=== PATIENT | female | born 1965 | race Caucasian/White ===

== ENCOUNTER 2016-08-07 22:50 | Inpatient (IN) ==
[2016-08-07] MEDS ORDERED: *HR* HYDROmorphone (PF) 1 MG/ML SYRINGE IVP ONE (23:37)
[2016-08-07] MEDS ORDERED: Ondansetron 4 MG/2 ML VIAL IVP ONE (23:37)
[2016-08-07] MEDS ORDERED: 0.9 % Sodium Chloride 1,000 ML IV ONE (23:37)
[2016-08-07] MEDS ORDERED: Ondansetron ODT 4 MG TAB.RAPDIS SL ONE (23:37)
[2016-08-08 00:14] LABS: Basophils # 0.1 K/mcL (0.0-0.2); Basophils % 0.5 %; Eosinophils # 0.3 K/mcL (0.0-0.6); Hematocrit 42.7 % (35.3-44.9); Hemoglobin 14.4 g/dL (11.5-15.4); Immature Granulocytes % 0.4 % (0-4); Lymphocytes # 1.9 K/mcL (0.6-4.6); Lymphocytes % 12.5 %; Mean Corpuscular HGB Conc 33.7 g/dL (31.6-35.5); Mean Corpuscular Hemoglobin 32.5 pg (28.0-33.3); Mean Corpuscular Volume 96.4 fL (83.0-100.0); Mean Platelet Volume 9.3 fL (9.4-12.4); Monocytes % 6.3 %; Neutrophils # 11.9 K/mcL (1.6-8.9); Platelet Count 315 K/mcL (140-400); Red Blood Count 4.43 M/mcL (3.82-4.97); Red Cell Distribution Width 12.3 % (11.5-14.5); Segmented Neutrophils % 78.3 %
[2016-08-08] MEDS ORDERED: *HR* HYDROmorphone (PF) 1 MG/ML SYRINGE IVP ONE (00:25)
[2016-08-08 00:28] LABS: Alanine Aminotransferase 59 Units/L (0-55); Albumin/Globulin Ratio 1.1 (1.1-2.2); Alkaline Phosphatase 81 Units/L (38-126); Aspartate Amino Transferase 34 Units/L (5-34); BUN/Creatinine Ratio 26 (6-26); Bilirubin,Total 0.5 mg/dL (0.2-1.2); Blood Urea Nitrogen 20 mg/dL (7-20); Calcium 9.7 mg/dL (8.6-10.8); Carbon Dioxide 24 mEq/L (19-29); Chloride 104 mEq/L (98-109); Globulin 3.6 g/dL (2.4-3.5); Glucose 113 mg/dL (70-99); Lipase 25 Units/L (8-78); Osmolality,Calculated 289 (280-300); Potassium 4.2 mEq/L (3.5-4.5); Sodium 138 mEq/L (136-145); Total Protein 7.6 g/dL (6.0-8.3); eGFR For African Americans > 60 (> 60); eGFR For Non-African Americans > 60 (> 60)
--- NOTE | 2016-08-08 00:45 | Emergency Department Note ---
Addendum entered and electronically signed by Aashish Varma DO 08/08/16 04: 48: EKG shows sinus rhythm with a ventricular rate of 83 bpm. KS interval 167. QRS 82. QTC 398. Patient has no significant ST elevation or depression. Mild T-wave changes throughout the precordial leads when compared to 07/23/16. Unknown significance. Original Note: Disposition Clinical Impression: Kidney stone, Pyelonephritis Hydronephrosis Qualifiers: Hydronephrosis type: unspecified Qualified Code(s): N13.30 - Unspecified hydronephrosis Disposition: Admitted As Inpatient Condition: Good General Adult HPI - General Chief complaint: ED Abdominal Pain Stated complaint: flank/abdominal pain/ N/V Time Seen by Provider: 08/07/16 23:21 Source: patient Limitations: no limitations Nursing Notes Reviewed: Yes Vital Signs Reviewed: Yes - History of Present Illness HPI Narrative: Patient here for evaluation of left flank pain and abdominal pain. Patient states symptoms started prior to arrival. Patient has had kidney stones in the past they have never radiated around to the front. Patient is nauseous and feels that she needs to vomit but nothing is coming up. No fevers or chills or abdominal tenderness or dysuria. CVA tenderness present. Patient states only current medication that she takes on a daily basis as ibuprofen. She was question about her hepatitis and previous CO as well as PE. Patient denies anticoagulation or daily aspirin use or other. Pain Scale: 9 - Related Data Home Medications Medication Instructions Recorded Confirmed Amitiza 06/24/15 Cogentin 06/24/15 Diazepam 06/24/15 Ducolace 06/24/15 Fiber 06/24/15 HydrOXYzine 06/24/15 Lunesta 06/24/15 Proair Respiclick 06/24/15 Seroquel 06/24/15 Spiriva 06/24/15 Previous Rx's Medication Instructions Recorded Cephalexin [Keflex] 500 mg PO BID #20 capsule 08/21/15 Ondansetron ODT [Zofran ODT] 4 mg SL Q8HR #10 tab.rapdis 08/21/15 Polyethylene Glycol 3350 [MiraLAX] 17 gm PO DAILY #10 powd.pack 08/21/15 Cephalexin [Keflex] 500 mg PO QID #40 capsule 08/31/15 Mupirocin [Bactroban Oint] 1 appl TP BID #30 g 08/31/15 Ondansetron ODT [Zofran ODT] 4 mg SL Q6HR #14 tab.rapdis 11/03/15 Oxycodone HCl/Acetaminophen 1 each PO QID PRN #6 tablet 12/20/15 [Percocet 5-325 mg Tablet] Hydrocodone/Acetaminophen [[place] 1 - 2 each PO Q6H PRN #15 tablet 01/04/16 5-325 Tablet] MethylPREDNISolone [Medrol] 1 each PO DAILY #1 packet 01/04/16 Hydrocodone/Acetaminophen [[place] 1 - 2 tab PO Q6H PRN #20 tab 01/27/16 5-325 Tablet] Cyclobenzaprine [Flexeril] 10 mg PO TID 15 Days 02/05/16 Ibuprofen [Motrin] 600 mg PO Q6HR PRN #40 tab MDD 3200 02/05/16 Hydrocodone/Acetaminophen [[place] 1 tab PO Q6H PRN #6 tab 03/20/16 5-325 Tablet] Nitrofurantoin (BID) [Macrobid] 100 mg PO BID 5 Days 03/20/16 Phenazopyridine HCl [Pyridium] 200 mg PO TID #6 tab 03/20/16 Hydrocodone/Acetaminophen [[place] 1 tab PO Q6H PRN #6 tab 05/15/16 5-325 Tablet] MethylPREDNISolone [Medrol] 4 mg PO TAPER #21 tablet 05/15/16 Cyclobenzaprine [Flexeril] 10 mg PO TID #30 tablet 07/23/16 OxyCODONE/APAP 5/325 [Percocet 1 each PO Q6HR PRN #15 tablet 07/23/16 5/325 MG] Allergies Allergy/AdvReac Type Severity Reaction Status Date / Time divalproex sodium Allergy Anaphylaxis Verified 08/07/16 22:53 [From Depakote] ketorolac [From Toradol] Allergy Rash Verified 08/07/16 22:53 sulfamethoxazole Allergy Anaphylaxis Verified 08/07/16 22:53 [From Bactrim] trimethoprim [From Bactrim] Allergy Anaphylaxis Verified 08/07/16 22:53 phenazopyridine AdvReac Vomiting Verified 08/07/16 22:53 [From Pyridium] All systems ED: reviewed and negative except as stated. Constitutional: Denies: fever, chills, weakness Cardiovascular: Denies: chest pain Respiratory: Denies: cough, dyspnea Gastrointestinal: Reports: abdominal pain, nausea. Denies: diarrhea, constipation Genitourinary: Denies: urgency, dysuria, frequency Musculoskeletal: Denies: back pain Integumentary: Denies: rash Neurological: Denies: headache, weakness Endocrine: Denies: fatigue Past Medical History - Past Medical History Medical history: Reports: COPD, hepatitis, kidney stones, liver disease, myocardial infarction, pulmonary embolus, other Surgical history: Reports: appendectomy, cholecystectomy, hysterectomy, other Psychiatric history: Reports: bipolar, panic disorder HYDROGEN CELL TENDER history: Reports: no HYDROGEN CELL TENDER history, other - Social History Smoking Status: Current every day smoker Smokeless Tobacco Status: No Alcohol use: Reports: none Drug use: Reports: none Physical Exam - General Limitations: no limitations General appearance: alert - Head Head exam: atraumatic, normocephalic - Eye Eye exam: Present: normal appearance - ENT ENT exam: normal exam, normal oropharynx - Neck Neck exam: Present: normal inspection - Chest Chest inspection: Present: normal inspection, symmetric chest wall rise Course - Reevaluation(s) Reevaluation #1: Patient received 2 mg of Dilaudid with mild pain relief. Toradol administered with significant pain relief. - Consultations Consultation #1: Discussed with Dr. Correia. Pt accepted to the urologic service. Vital Signs Temperature 97.9 F 08/07/16 22:53 Pulse Rate 112 08/07/16 22:53 Respiratory Rate 20 08/07/16 22:53 Blood Pressure 143/72 08/07/16 22:53 O2 Sat by Pulse Oximetry 97 08/07/16 22:53 Temperature 102.1 F H 08/08/16 05:15 Pulse Rate 105 08/08/16 05:15 Respiratory Rate 21 08/08/16 05:15 Blood Pressure 104/68 08/08/16 05:15 O2 Sat by Pulse Oximetry 92 L 08/08/16 05:15 Oxygen Delivery Oxygen Delivery Room Air Medical Decision Making - Lab Data Result diagrams: 08/08/16 00:07 08/08/16 00:07 Lab Results 08/08/16 08/08/16 08/08/16 Range/Units 00:07 00:07 02:35 WBC 15.2 H (4.3-11.1) K/mcL RBC 4.43 (3.82-4.97) M/mcL Hgb 14.4 (11.5-15.4) g/dL Hct 42.7 (35.3-44.9) % MCV 96.4 (83.0-100.0) fL MCH 32.5 (28.0-33.3) pg MCHC 33.7 (31.6-35.5) g/dL RDW 12.3 (11.5-14.5) % Plt Count 315 (140-400) K/mcL MPV 9.3 L (9.4-12.4) fL Immature Gran % 0.4 (0-4) % Seg Neutrophils % 78.3 % Lymphocytes % 12.5 % Monocytes % 6.3 % Eosinophils % 2.0 % Basophils % 0.5 % Neutrophils # 11.9 H (1.6-8.9) K/mcL Lymphocytes # 1.9 (0.6-4.6) K/mcL Monocytes # 1.0 (0.0-1.3) K/mcL Eosinophils # 0.3 (0.0-0.6) K/mcL Basophils # 0.1 (0.0-0.2) K/mcL Sodium 138 (136-145) mEq/L Potassium 4.2 (3.5-4.5) mEq/L Chloride 104 (98-109) mEq/L Carbon Dioxide 24 (19-29) mEq/L BUN 20 (7-20) mg/dL Creatinine 0.78 (0.57-1.11) mg/dL Est GFR ( Amer) > 60 (> 60) Est GFR (Non-Af Amer) > 60 (> 60) BUN/Creatinine Ratio 26 (6-26) Glucose 113 H (70-99) mg/dL Calculated Osmolality 289 (280-300) Calcium 9.7 (8.6-10.8) mg/dL Total Bilirubin 0.5 (0.2-1.2) mg/dL AST 34 (5-34) Units/L ALT 59 H (0-55) Units/L Alkaline Phosphatase 81 (38-126) Units/L Serum Total Protein 7.6 (6.0-8.3) g/dL Albumin 4.0 (3.5-5.0) g/dL Globulin 3.6 H (2.4-3.5) g/dL Albumin/Globulin Ratio 1.1 (1.1-2.2) Lipase 25 (8-78) Units/L Urine Color Yellow (Yellow) Urine Clarity Cloudy A (Clear) Urine pH 6.0 (5.0-8.0) pH Units Ur Specific [place] 1.013 (1.010-1.025) Urine Protein Negative (Neg-Trace) mg/dL Urine Glucose (UA) Normal (Normal) mg/dL Urine Ketones Negative (Negative) mg/dL Urine Blood Trace H (Negative) Urine Nitrite Positive A (Negative) Urine Bilirubin Negative (Negative) Urine Urobilinogen Normal (Normal) mg/dL Ur Leukocyte Esterase Large H (Negative) Urine Microscopic RBC 0-3 (0-3) per hpf Urine Microscopic WBC 50-100 H (0-3) per hpf Ur Squamous Epith Cells Few (None-Few) per lpf Urine Bacteria Many H (None-Few) per hpf Hyaline Casts None Seen (None-Few) per lpf Attestation Statement - Attestation Attestation: For this encounter, I have reviewed the resident, ENGRAVER FLATWARE, or PA documentation, treatment plan, and medical decision making; and I have had face to face time with this patient. 51-year-old female presents with left flank pain. Patient states symptoms started a few hours prior to arrival. Patient has a history of ureterolithiasis in the past which has required surgery. Patient denies fever, chills, dysuria, diarrhea. Patient has tenderness palpation and percussion of the left CVA. CT of the abdomen shows hydronephrosis and likely ureteral stone. Patient's urinalysis shows urinary tract infection. Patient will be given antibiotics in the emergency department and admitted to the urologist for further care and evaluation. Patient pain is well-controlled after 2 mg of Dilaudid and then Toradol after a normal creatinine. The patient is comfortable with the plan for admission to the hospital.
[2016-08-08] MEDS ORDERED: *HR* Promethazine 25 MG/ML VIAL IVP ONE (01:16)
[2016-08-08] MEDS ORDERED: Ketorolac 15 MG/ML VIAL IVP ONE (01:16)
[2016-08-08 02:53] LABS: Bilirubin,Urine Negative (Negative); Blood,Urine Trace (Negative); Clarity,Urine Cloudy (Clear); Color,Urine Yellow (Yellow); Glucose,Urine (UA) Normal (Normal); Ketones,Urine Negative (Negative); Leukocyte Esterase,Urine Large (Negative); Nitrite,Urine Positive (Negative); Protein,Urine Negative (Neg-Trace); Specific Gravity,Urine 1.013 (1.010-1.025); Urobilinogen,Urine Normal (Normal)
[2016-08-08 02:56] LABS: Bacteria,Urine Many per hpf (None-Few); Hyaline Casts,Urine None Seen per lpf (None-Few); RBC,Urine 0-3 per hpf (0-3); Squamous Epithelial Cell,Urine Few per lpf (None-Few); WBC,Urine 50-100 per hpf (0-3)
[2016-08-08] MEDS ORDERED: *HR* Morphine 2 MG/ML SYRINGE IVP ONE (05:45)
[2016-08-08] MEDS: Acetaminophen 325 MG TABLET PO ONE ×2 (06:22→06:34)
[2016-08-08] MEDS ORDERED: Acetaminophen 325 MG TABLET PO PRN (06:31)
[2016-08-08] MEDS ORDERED: *HR* Promethazine 25 MG/ML VIAL IVP PRN (06:31)
[2016-08-08] MEDS ORDERED: Ibuprofen 400 MG TABLET PO PRN (06:31)
[2016-08-08] MEDS ORDERED: Naloxone 0.4 MG/ML INJ IVP PRN (06:31)
[2016-08-08] MEDS ORDERED: Ondansetron 4 MG/2 ML VIAL IVP PRN (06:31)
--- NOTE | 2016-08-08 06:49 | Urology History & Physical ---
Date of Encounter: 08/08/16 Time of Encounter: 06:48 Assessment and Plan (1) Ureteral stone with hydronephrosis Current Visit: Yes Status: Acute I reviewed the CT scan images. I suspect that this is a 3-4 mm stone in the distal ureter but it is somewhat difficult to confirm as there is no significant hydroureter. Secondary to her symptoms I plan to proceed with a ureteroscopic stone extraction and stent placement. Patient understands that I may only place a stent if reaching the area of the stone requires significant manipulation or if there is return of purulence. We discussed the increased risk of worsening infection with a UTI or pyelonephritis. 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 Although there was mild dilation of the left renal pelvis, CT scan last year the hydronephrosis has increased greatly on this recent scan. The retrograde pyelogram will hopefully better identify the source of the hydronephrosis. She understands that she will require a longer term stent because of this finding and that it may require further workup in the near future. (2) Fever Current Visit: Yes Status: Acute Ibuprofen as she reports an allergy to Tylenol Qualifiers: Fever type: due to other condition Qualified Code(s): R50.81 - Fever presenting with conditions classified elsewhere (3) Pyelonephritis Current Visit: Yes Status: Acute We will follow urine cultures. Start Rocephin. History of Present Illness Chief complaint: left flank pain HPI: Ms. Crook is a 51 year old female hx of urolithiasis. sudden onset of left flank pain. ct scan with a 3-4 mm left distal ureteral stone. also with possible UPJO. no known hx of UPJO. pt describes severe left flank pain. malaise but no fever. +N/V Past Med Surg Social Fam HX - Past Medical History Medical history: COPD, hepatitis, kidney stones, liver disease, myocardial infarction, pulmonary embolus, other Psychiatric history: bipolar, panic disorder - Past Surgical History Surgical History: appendectomy, cholecystectomy, hysterectomy, other - Social History Smoking Status: Current every day smoker Smokeless Tobacco Status: No Alcohol use: none Drug use: none - Family History Mother Cause of : cancer Medications and Allergies Amitiza 06/24/15 [History] Cogentin 06/24/15 [History] Diazepam 06/24/15 [History] Ducolace 06/24/15 [History] Fiber 06/24/15 [History] HydrOXYzine 06/24/15 [History] Lunesta 06/24/15 [History] Proair Respiclick 06/24/15 [History] Seroquel 06/24/15 [History] Spiriva 06/24/15 [History] Cephalexin [Keflex] 500 mg PO BID #20 capsule 08/21/15 [Rx] Ondansetron ODT [Zofran ODT] 4 mg SL Q8HR #10 tab.rapdis 08/21/15 [Rx] Polyethylene Glycol 3350 [MiraLAX] 17 gm PO DAILY #10 powd.pack 08/21/15 [Rx] Cephalexin [Keflex] 500 mg PO QID #40 capsule 08/31/15 [Rx] Mupirocin [Bactroban Oint] 1 appl TP BID #30 g 08/31/15 [Rx] Ondansetron ODT [Zofran ODT] 4 mg SL Q6HR #14 tab.rapdis 11/03/15 [Rx] Oxycodone HCl/Acetaminophen [Percocet 5-325 mg Tablet] 1 each PO QID PRN #6 tablet 12/20/15 [Rx] Hydrocodone/Acetaminophen [[place] 5-325 Tablet] 1 - 2 each PO Q6H PRN #15 tablet 01/04/16 [Rx] MethylPREDNISolone [Medrol] 1 each PO DAILY #1 packet 01/04/16 [Rx] Hydrocodone/Acetaminophen [[place] 5-325 Tablet] 1 - 2 tab PO Q6H PRN #20 tab 05/03 [Rx] Cyclobenzaprine [Flexeril] 10 mg PO TID 15 Days 02/05/16 [Rx] Ibuprofen [Motrin] 600 mg PO Q6HR PRN #40 tab MDD 3200 02/05/16 [Rx] Hydrocodone/Acetaminophen [[place] 5-325 Tablet] 1 tab PO Q6H PRN #6 tab 03/20/16 [Rx] Nitrofurantoin (BID) [Macrobid] 100 mg PO BID 5 Days 03/20/16 [Rx] Phenazopyridine HCl [Pyridium] 200 mg PO TID #6 tab 03/20/16 [Rx] Hydrocodone/Acetaminophen [[place] 5-325 Tablet] 1 tab PO Q6H PRN #6 tab 05/15/16 [Rx] MethylPREDNISolone [Medrol] 4 mg PO TAPER #21 tablet 05/15/16 [Rx] Cyclobenzaprine [Flexeril] 10 mg PO TID #30 tablet 07/23/16 [Rx] OxyCODONE/APAP 5/325 [Percocet 5/325 MG] 1 each PO Q6HR PRN #15 tablet 07/23/16 [Rx] Allergies divalproex sodium [From Depakote] Allergy (Verified 08/07/16 22:53) Anaphylaxis ketorolac [From Toradol] Allergy (Verified 08/07/16 22:53) Rash sulfamethoxazole [From Bactrim] Allergy (Verified 08/07/16 22:53) Anaphylaxis trimethoprim [From Bactrim] Allergy (Verified 08/07/16 22:53) Anaphylaxis phenazopyridine [From Pyridium] Adverse Reaction (Verified 08/07/16 22:53) Vomiting Review of Systems - Constitutional malaise, no fever(s) - EENT Nose, mouth and throat: as per HPI, no dizziness - Cardiovascular no chest pain - Gastrointestinal abdominal pain, nausea, vomiting - Genitourinary Genitourinary: flank pain, no dysuria - Musculoskeletal back pain - Integumentary no erythema - Neurological no confusion - Psychiatric no anxiety - Hematologic/Lymphatic no easy bleeding - Allergic/Immunologic no throat swelling Exam Initial Vital Signs Temp Pulse Resp BP Pulse Ox 97.9 F 112 20 143/72 97 08/07/16 22:53 08/07/16 22:53 08/07/16 22:53 08/07/16 22:53 08/07/16 22:53 - General physical appearance Present: well developed, well nourished, moderate pain - Eyes Present: PERRL - ENT Present: normal nares - Neck Present: no masses - Respiratory Present: normal respiratory effort - Cardiovascular Cardiovascular exam IM: tachycardia - Abdomen Abdomen: Present: soft - Integumentary Present: no rash - Neurologic Present: normal coordination. Absent: disoriented, confused - Musculoskeletal Present: normal gait Urology Results - Labs 08/08/16 00:07 08/08/16 00:07 Abnormal lab results WBC 15.2 K/mcL (4.3-11.1) H 08/08/16 00:07 MPV 9.3 fL (9.4-12.4) L 08/08/16 00:07 Neutrophils # 11.9 K/mcL (1.6-8.9) H 08/08/16 00:07 Glucose 113 mg/dL (70-99) H 08/08/16 00:07 ALT 59 Units/L (0-55) H 08/08/16 00:07 Globulin 3.6 g/dL (2.4-3.5) H 08/08/16 00:07 Urine Clarity Cloudy (Clear) A 08/08/16 02:35 Urine Blood Trace (Negative) H 08/08/16 02:35 Urine Nitrite Positive (Negative) A 08/08/16 02:35 Ur Leukocyte Esterase Large (Negative) H 08/08/16 02:35 Urine Microscopic WBC 50-100 per hpf (0-3) H 08/08/16 02:35 Urine Bacteria Many per hpf (None-Few) H 08/08/16 02:35 All other labs normal.
[2016-08-08] MEDS: 0.9 % Sodium Chloride 1,000 ML IVC SCH ×2 (07:50→16:15)
[2016-08-08] MEDS: *HR* Morphine 2 MG/ML SYRINGE IVP PRN ×4 (08:43→16:14)
--- NOTE | 2016-08-08 17:27 | Electrocardiograph Report ---
[place] [id number] Test Date: 2016-08-08 Pat Name: Marielena Crook Department: 105 Room: 2A Gender: F Supervisor Component Assembler: : 1965 Requested By: Aashish Varma Order Number: [id number] Reading MD: Selina Torres Measurements Intervals [place] Rate: 83 P: 48 TN: 167 QRS: 41 QRSD: 82 T: 50 QT: 358 QTc: 398 Interpretive Statements SINUS RHYTHM POSSIBLE LEFT ATRIAL ENLARGEMENT [-0.1mV P WAVE IN V1/V2] SEPTAL MYOCARDIAL INFARCTION [40+ ms Q WAVE IN V1/V2], OF INDETERMINATE AGE Electronically Signed On 08-08-2016 17:25:45 EST by Selina Torres
--- NOTE | 2016-08-08 17:35 | Anesthesia Evaluation PreOp ---
Date of Encounter: 08/08/16 Time of Encounter: 19:04 - Past History Planned Operation: L USE Cardiac History: PR Pulmonary History: Smoker, COPD CLINICAL APPEALS SPECIALIST History: Other (anxiety, bipolar, PTSD) Other Medical History: Hepatic (Hep C), Diabetes Type II, GERD Anesthesia History: No Prior Anesthetic Complications Alcohol Use: none Drug use: none Medications and Allergies Ibuprofen [Advil] 200 mg PO Q6H PRN 08/08/16 [History] Allergies divalproex sodium [From Depakote] Allergy (Verified 08/08/16 08:07) Anaphylaxis gabapentin Allergy (Verified 08/08/16 08:10) See Comments "makes me suicidal" ketorolac [From Toradol] Allergy (Verified 08/08/16 08:07) Rash sulfamethoxazole [From Bactrim] Allergy (Verified 08/08/16 08:07) Anaphylaxis trimethoprim [From Bactrim] Allergy (Verified 08/08/16 08:07) Anaphylaxis acetaminophen [From Tylenol] Adverse Reaction (Verified 08/08/16 08:10) Gastrointestinal Upset phenazopyridine [From Pyridium] Adverse Reaction (Verified 08/08/16 08:07) Vomiting - Meds/Allergy Pre-op Review Medications Reviewed: Yes Allergies Reviewed: Yes Beta Blockers on Current Med List: No Anesthesia Results - Labs 08/08/16 00:07 08/08/16 00:07 - Imaging EKG: report reviewed, image reviewed (SR; poss LAE; septal PR (of indeterminate age)) Anesthesia Exam Last Vital Signs Temp 98.2 F 08/08/16 15:00 Pulse 90 08/08/16 15:00 Resp 16 08/08/16 15:00 BP 98/63 08/08/16 15:00 Pulse Ox 95 08/08/16 15:00 Weight: 65 kg - HEENT Pupil (Motor): Pupils equal, EOMI Mallampati: II Teeth: Missing, Poor dentition - CLINICAL APPEALS SPECIALIST LOC: Oriented - Cardiac Rhythm: Regular Murmur: None - Pulmonary Breath Sounds: bilateral Clear Respiratory Effort: Symmetrical Anesthesia Assess/Plan ASA Score: 3 Modified Vj Scale for Level of Consciousness: Cooperative, oriented, and tranquil Anesthetic Plan: General Monitoring Plan: Standard Monitors Recovery Plan: PACU
[2016-08-08] MEDS ORDERED: *HR* Propofol 200 MG/20 ML VIAL IVP ONE (18:59)
[2016-08-08] MEDS ORDERED: *HR* Midazolam HCl 2 MG/2 ML VIAL ONE (18:59)
[2016-08-08] MEDS ORDERED: *HR* FentaNYL (PF) 100 MCG/2 ML VIAL ONE (18:59)
[2016-08-08] MEDS ORDERED: Lidocaine -MPF 2% 2 ML VIAL ONE (19:00)
[2016-08-08] MEDS ORDERED: Dexamethasone 4 MG/ML VIAL ONE (19:44)
[2016-08-08] MEDS ORDERED: Ondansetron 4 MG/2 ML VIAL ONE (19:44)
--- NOTE | 2016-08-08 20:01 | Operative Note ---
Date of procedure: 08/08/16 Pre-op diagnosis: left ureteral stone and UPJO Post-op diagnosis: other (UPJO. no stone) Procedure: left retrograde pyelogram and ureteral stent Anesthesia: GETA Surgeon: Danny Correia Estimated blood loss (cc): 0 Specimen: none Condition: stable Disposition: PACU Procedure in Detail: pt taken back to OR and placed supine. anesthesia applied without complication. she was moved to dorsal lithotomy. time out performed. she was prepped and draped in sterile fashion. rigid 21 cystoscope was inserted. signifcant debris in bladder. left UO cannulated with 5 [place] ureteral cath. retrograde had no filling defects. very defined high grade UPJO with jet. some debris in renal pelvis but no purulence as I aspirated with 5 [place] citizen. placed guide wire and then a 4.8 by 26 stent. bladder drained procedure stopped.
[2016-08-08] MEDS: *HR* HYDROmorphone (PF) 1 MG/ML SYRINGE IVP PRN ×3 (20:16→22:22)
--- NOTE | 2016-08-08 20:42 | Anesthesia Evaluation Post Op ---
Date of Encounter: 08/08/16 Time of Encounter: 20:41 - Vital Signs Vital Signs: Vital Signs/O2 Sat, Most Current Temp Pulse Resp BP Pulse Ox 98.7 F 84 20 102/70 96 08/08/16 20:05 08/08/16 20:25 08/08/16 20:25 08/08/16 20:25 08/08/16 20:25 - Lungs Lungs: Clear Ascult./Percussion - Airway Airway: Non-obstructed - Cardiovascular Regular Rate - Mental Status Mental Status: Asleep with brisk response to light stimulation - Pain Pain Scale: 4 Pain Scale used: Numeric (1 - 10) - Nausea Vomiting Nausea Vomiting: Not Present - Hydration Hydration: Ice chips, Has not voided - Discharge PostOp Status: Transfer Patient to floor
[2016-08-09] MEDS: *HR* HYDROmorphone (PF) 1 MG/ML SYRINGE IVP PRN ×2 (00:42→05:36)
[2016-08-09] MEDS: 0.9 % Sodium Chloride 1,000 ML IVC SCH (01:49)
[2016-08-09] MEDS: *HR* Morphine 2 MG/ML SYRINGE IVP PRN ×2 (03:44→07:45)
[2016-08-09 04:34] VITALS: BP 87/51
--- NOTE | 2016-08-09 06:15 | Discharge Summary ---
Date of Encounter: 08/09/16 Time of Encounter: 06:12 - Discharge Diagnosis (1) Ureteral stone with hydronephrosis Priority: Primary Status: Ruled-out (2) Fever Priority: Secondary Status: Acute Qualifiers: Fever type: due to other condition Qualified Code(s): R50.81 - Fever presenting with conditions classified elsewhere (3) Pyelonephritis Priority: Primary Status: Acute Comments: likely from UPJO - Discharge Medications Prescriptions: Cefdinir [Omnicef] 300 mg PO BID #20 capsule Ibuprofen/Oxycodone HCl [Oxycodone-Ibuprofen 5-400 Tab] 1 each PO Q6H PRN #15 tablet PRN Reason: Pain Home Medications: Ibuprofen [Advil] 200 mg PO Q6H PRN 08/08/16 [History] Cefdinir [Omnicef] 300 mg PO BID #20 capsule 08/09/16 [Rx] Ibuprofen/Oxycodone HCl [Oxycodone-Ibuprofen 5-400 Tab] 1 each PO Q6H PRN #15 tablet 08/09/16 [Rx] Allergies/Adverse Reactions: Allergies divalproex sodium [From Depakote] Allergy (Verified 08/08/16 08:07) Anaphylaxis gabapentin Allergy (Verified 08/08/16 08:10) See Comments "makes me suicidal" ketorolac [From Toradol] Allergy (Verified 08/08/16 08:07) Rash sulfamethoxazole [From Bactrim] Allergy (Verified 08/08/16 08:07) Anaphylaxis trimethoprim [From Bactrim] Allergy (Verified 08/08/16 08:07) Anaphylaxis acetaminophen [From Tylenol] Adverse Reaction (Verified 08/08/16 08:10) Gastrointestinal Upset phenazopyridine [From Pyridium] Adverse Reaction (Verified 08/08/16 08:07) Vomiting Labs on day of discharge: Labs from last 24 hours 08/08/16 20:14 POC Glucose 95 H - Impressions ITS Impressions Retrograde Pyelogram 08/08/16 19:42 IMPRESSION: Apparent UPJ stricture or obstruction, successfully crossed with ureteral stent placement. D/ / Ishmael Yan MD / Ishmael Yan MD Interpreting Provider: Ishmael Yan MD Abdomen/Pelvis CT 08/08/16 23:52 IMPRESSION: Moderate left-sided hydronephrosis with marked dilation of the left renal pelvis but no ureteral dilation. There is either a small stone in the distal left ureter or there is a small phlebolith adjacent to the ureter. If this does represent a phlebolith than the lack of ureteral dilation suggests an acquired stricture at the ureteropelvic junction as there is no hydronephrosis on the relatively recent prior study. D/ / Karan Cook MD / Karan Cook MD Interpreting Provider: Karan Cook MD Date of admission: 08/08/16 06:41 Primary care physician: Ken Block MD Discharging clinician: Danny Correia Anticipated date of discharge: 08/09/16 - Patient Status Disposition: Home, Self-Care Functional capacity at discharge: independent ambulation Overall status at discharge: patient is progressing back to baseline - Discharge Instructions Follow Up With: Ken Block MD [Primary Care Provider] - 08/16/16 3:15 pm () Danny Correia MD [Partnered Physician] - Additional Instructions: expect stent discomfort including urgnecy, frequency, blood in the urine, burning, and flank pain call if fever over 101 - Diet and Activity Activity: increase activity as tolerated Diet: advance to your usual diet - Hospital Course Hospital course: Ms. Crook is a 51 year old female s/p ureteral stent placment. afebrile overnight. feels better. no ureteral stone. likely UPJO - Time Spent with Patient Total time spent providing and/or coordinating discharge services: Exam Initial Vital Signs Temp Pulse Resp BP Pulse Ox 97.9 F 112 20 143/72 97 08/07/16 22:53 08/07/16 22:53 08/07/16 22:53 08/07/16 22:53 08/07/16 22:53 - General physical appearance Present: well developed, no distress
== END 2016-08-09 08:52 | disposition home or self-care (01) | DRG 465 ==
LOC: EMEROO 22:50 → 2ANU 22:50
PROVIDERS: ADMIT Urology; ATTEND Urology

== ENCOUNTER 2017-06-12 07:04 | Inpatient (IN) ==
[2017-06-12] MEDS ORDERED: 0.9 % Sodium Chloride 1,000 ML IVC ONE (07:12)
[2017-06-12] MEDS ORDERED: methylPREDNISolone 125 MG/2 ML VIAL IVP ONE (07:12)
[2017-06-12] MEDS ORDERED: Ipratropium/Albuterol Neb 3 ML IH ONE (07:12)
--- NOTE | 2017-06-12 07:16 | Emergency Department Note ---
Disposition Clinical Impression: Cough, COPD with exacerbation Dyspnea Qualifiers: Dyspnea type: unspecified Qualified Code(s): R06.00 - Dyspnea, unspecified Pneumonia Qualifiers: Pneumonia type: due to unspecified organism Laterality: unspecified laterality Lung location: unspecified part of lung Qualified Code(s): J18.9 - Pneumonia, unspecified organism Disposition: Admitted As Inpatient Condition: Good Referrals: Ken Block MD [Primary Care Provider] - Forms: ED Satisfaction Letter Time of Disposition: 09:08 SOB HPI - General Chief Complaint: ED Shortness of Breath/Dyspnea Stated Complaint: sob Time Seen by Provider: 06/12/17 07:05 Source: patient, EMS Mode of arrival: EMS Limitations: no limitations Nursing Notes Reviewed: Yes Vital Signs Reviewed: Yes - History of Present Illness 51-year-old female history of COPD pack per day smoker and hepatitis presents to the ED via EMS for dyspnea on exertion. Patients had worsening shortness of breath and cough over the past month. Recently evaluated here in emergency department diagnosed with pneumonia. Patient reports given a course of Levaquin antibiotic. Symptoms did not improve, follow-up appointment with her primary care physician Dr. Manning and placed her on another ten-day course of Levaquin as well as a Rocephin shot in steroids. She was also given nebulizer treatments for her COPD. She continues to be short of breath worse with any kind of exertion. Denies any chest pain. Fever last night as high as 101. Continues to have a productive cough. Denies any chills, nausea, vomiting, abdominal pain. Denies history of cardiac ischemic disease. No prior history of blood clots, recent long-distance travel, malignancy, hormone replacement. Symptoms have been ongoing for several weeks. Will check a influenza mono spot. Will give her a breathing treatment in steroids as well. Basic labs, troponin lactate and given her immunosuppressive state will evaluate with the CT of the chest pending renal function is adequate. Pt Subjective Complaint: shortness of breath, cough - Related Data Previous Rx's Medication Instructions Recorded Albuterol Sulfate [Ventolin Hfa] 2 puff IH Q4-6H PRN #1 hfa.aer.[id number] 02/07/17 Azithromycin [Zithromax] 250 - 500 mg PO DAILY #6 tablet 02/07/17 Ciprofloxacin OPTH Soln [Ciloxan 2 drop LEFT EYE 2-4XD #1 bottle 02/07/17 OPTH Soln] Promethazine/Dextromethorphan 5 ml PO Q4-6H PRN #120 ml 02/07/17 [Promethazine-Dm Syrup] predniSONE [PredniSONE] 40 mg PO DAILY #10 tablet 02/07/17 HYDROcodone/Acet 5/325 mg [Sidney 1 tab PO Q6H PRN #2 tab 03/22/17 5-325 mg] predniSONE [PredniSONE] 40 mg PO DAILY 5 Days tablet 03/22/17 Dextromethorphan HBr [Robitussin] 15 mg PO Q6HR PRN #20 capsule 05/30/17 PredniSONE [Deltasone] 40 mg PO DAILY #10 tablet 05/30/17 Allergies Allergy/AdvReac Type Severity Reaction Status Date / Time divalproex sodium Allergy Rash Verified 06/12/17 07:05 [From Depakote] sulfamethoxazole Allergy Anaphylaxis Verified 06/12/17 07:05 [From Bactrim] trimethoprim [From Bactrim] Allergy Anaphylaxis Verified 06/12/17 07:05 gabapentin AdvReac See Verified 06/12/17 07:05 Comments phenazopyridine AdvReac Vomiting Verified 06/12/17 07:05 [From Pyridium] All systems ED: reviewed and negative except as stated. Review of Systems: As Per HPI Constitutional: Reports: fever, chills ENT ED: Reports: congestion. Denies: throat pain, dysphagia Cardiovascular: Reports: dyspnea on exertion. Denies: chest pain Respiratory: Reports: cough, dyspnea. Denies: wheezes Gastrointestinal: Denies: abdominal pain, nausea, vomiting Genitourinary: Denies: urgency, dysuria Musculoskeletal: Denies: back pain, neck pain Integumentary: Denies: rash, abrasion, lesions Neurological: Denies: headache, confusion Psychiatric: Denies: anxiety, depression Endocrine: Reports: fatigue Past Medical History - Past Medical History Attestation: Yes The following information was validated with the patient. Source: patient Medical history: Reports: arthritis, COPD, hepatitis, kidney stones, other Surgical history: Reports: appendectomy (1991), cholecystectomy (2008), orthopedic, other (Left foot 02/26/2013), ANDRESSA/BSO (1991), other (Repaired left kidney 09/2016) Psychiatric history: Reports: bipolar, panic disorder STRATEGIC ADVISOR history: Reports: no STRATEGIC ADVISOR history, other - Social History Smoking Status: Current every day smoker Smokeless Tobacco Status: No Alcohol use: Reports: none Drug use: Reports: none Physical Exam - General Limitations: no limitations General appearance: alert, in no apparent distress - Head Head exam: atraumatic, normocephalic, normal inspection - Eye Eye exam: Present: normal appearance, PERRL, EOMI - ENT ENT exam: normal exam, normal oropharynx, mucous membranes moist - Neck Neck exam: Present: normal inspection, full ROM, trachea midline - Chest Chest inspection: Present: normal inspection, symmetric chest wall rise. Absent : tenderness - Respiratory Respiratory exam: Present: normal lung sounds bilaterally. Absent: respiratory distress, wheezes - Cardiovascular Cardiovascular exam: Present: regular rate, normal rhythm, normal heart sounds - Abdominal Exam Abdominal exam: Present: soft, Non-Tender, normal bowel sounds. Absent: tenderness, distention, guarding, rebound, rigidity - Extremities Exam Extremities exam: Present: normal inspection, full ROM, normal capillary refill. Absent: tenderness, pedal edema, calf tenderness - Back Exam Back exam: Present: normal inspection, full ROM. Absent: tenderness - Neurological Exam Neurological exam: Present: alert, oriented X3, normal gait - Skin Skin exam: Present: warm, dry, intact, normal color. Absent: rash, cyanosis, diaphoresis Course - Reevaluation(s) Reevaluation #1: Her renal function is 0.66. Can proceed with CT angio of chest. Mitchell is negative. Fluid negative. She has a large leukocytosis of 24, patient is on steroids this is the highest it has been reviewing prior labs. Electrolytes normal. Troponin lesson 0.03. Her lactate is 1.3. She is not on septic.. Does not currently require aggressive fluid resuscitation. Time: 08:03 Reevaluation #2: CT did not reveal evidence of pulmonary embolism. There is some emphysematous changes seen, no radiologic evidence of pneumonia. Patient would likely benefit admission for failed outpatient therapy with Levaquin, treat empirically with Vancomycin and Zosyn for clinical pneumonia. Her oxygen saturation is 94% on room air. Systolic blood pressure stable at 100. Lungs remain clear auscultation bilaterally with some minimal wheezing. Reported improvement of symptoms with breathing treatments. Impression is dyspnea, cough , clinical pneumonia with COPD exacerbation. Chest CTA 06/12/17 07:12 IMPRESSION: No evidence for pulmonary embolism. Emphysematous changes seen within the left and right lung apices. D/ / 06/12/2017 08:16:43 Vijay Hartman MD / bashir Interpreting Provider: Vijay Hartman MD Time: 09:03 - Consultations Consultation #1: Spoke with on-call hospitalist martínez Guzman to admit for dyspnea, COPD exac, failed outpatient treatment with clinical pneumonia. No further orders at this time Time: 09:34 Vital Signs Temperature 98.0 F 06/12/17 07:05 Pulse Rate 98 06/12/17 07:05 Respiratory Rate 20 06/12/17 07:05 Blood Pressure 115/82 06/12/17 07:05 O2 Sat by Pulse Oximetry 98 06/12/17 07:05 Temperature 98.0 F 06/12/17 07:05 Pulse Rate 62 06/12/17 09:34 Respiratory Rate 20 06/12/17 09:34 Blood Pressure 97/61 06/12/17 09:34 O2 Sat by Pulse Oximetry 96 06/12/17 09:34 Oxygen Delivery Oxygen Delivery Room Air Shortness of Breath/Dyspnea - MDM Narrative Medical decision making narrative: Patient was discussed with my attending physician who agrees with ED management and final disposition. They independently evaluated the patient. Please refer to their attestation to this encounter for additional information. This note was generated by [employer] voice recognition software and as a result grammatical or spelling errors may occur using this program. - Differential Diagnosis Likely: acute exacerbation of chronic obstructive airways disease - Medical Records Medical records reviewed: Yes I reviewed the patient's medical records. - Lab Data Lab results reviewed: Yes I reviewed the patient's lab results. Result diagrams: 06/12/17 07:07 06/12/17 07:07 Lab Results 06/12/17 06/12/17 06/12/17 Range/Units 07:07 07:07 07:07 WBC 24.1 H (4.3-11.1) K/mcL RBC 4.46 (3.82-4.97) M/mcL Hgb 14.6 (11.5-15.4) g/dL Hct 43.0 (35.3-44.9) % MCV 96.4 (83.0-100.0) fL MCH 32.7 (28.0-33.3) pg MCHC 34.0 (31.6-35.5) g/dL RDW 13.3 (11.5-14.5) % Plt Count 422 H (140-400) K/mcL MPV 9.1 L (9.4-12.4) fL Immature Gran % 0.7 (0-4) % Seg Neutrophils % 75.8 % Lymphocytes % 14.4 % Monocytes % 8.1 % Eosinophils % 0.8 % Basophils % 0.2 % Neutrophils # 18.3 H (1.6-8.9) K/mcL Lymphocytes # 3.5 (0.6-4.6) K/mcL Monocytes # 2.0 H (0.0-1.3) K/mcL Eosinophils # 0.2 (0.0-0.6) K/mcL Basophils # 0.1 (0.0-0.2) K/mcL Sodium 138 (136-145) mEq/L Potassium 3.8 (3.5-5.1) mEq/L Chloride 108 H (98-107) mEq/L Carbon Dioxide 28 (23-29) mEq/L BUN 19 (6-20) mg/dL Creatinine 0.66 (0.60-1.20) mg/dL Est GFR ( Amer) > 60 (> 60) Est GFR (Non-Af Amer) > 60 (> 60) BUN/Creatinine Ratio 29 H (6-26) Glucose 108 H (70-105) mg/dL Calculated Osmolality 289 (280-300) Lactic Acid 1.3 (0.5-2.2) mmol/L Calcium 8.8 (8.6-10.3) mg/dL Troponin I (< 0.04) ng/mL B-Natriuretic Peptide (Less than 100) pg/mL Urine Color (Yellow) Urine Clarity (Clear) Urine pH (5.0-8.0) pH Units Ur Specific [place] (1.010-1.025) Urine Protein (Neg-Trace) mg/dL Urine Glucose (UA) (Normal) mg/dL Urine Ketones (Negative) mg/dL Urine Blood (Negative) Urine Nitrite (Negative) Urine Bilirubin (Negative) Urine Urobilinogen (Normal) mg/dL Ur Leukocyte Esterase (Negative) Ur Culture Indicated? (NO) Infectious Mitchell Assay (Negative) 06/12/17 06/12/17 06/12/17 Range/Units 07:07 07:07 07:07 WBC (4.3-11.1) K/mcL RBC (3.82-4.97) M/mcL Hgb (11.5-15.4) g/dL Hct (35.3-44.9) % MCV (83.0-100.0) fL MCH (28.0-33.3) pg MCHC (31.6-35.5) g/dL RDW (11.5-14.5) % Plt Count (140-400) K/mcL MPV (9.4-12.4) fL Immature Gran % (0-4) % Seg Neutrophils % % Lymphocytes % % Monocytes % % Eosinophils % % Basophils % % Neutrophils # (1.6-8.9) K/mcL Lymphocytes # (0.6-4.6) K/mcL Monocytes # (0.0-1.3) K/mcL Eosinophils # (0.0-0.6) K/mcL Basophils # (0.0-0.2) K/mcL Sodium (136-145) mEq/L Potassium (3.5-5.1) mEq/L Chloride (98-107) mEq/L Carbon Dioxide (23-29) mEq/L BUN (6-20) mg/dL Creatinine (0.60-1.20) mg/dL Est GFR ( Amer) (> 60) Est GFR (Non-Af Amer) (> 60) BUN/Creatinine Ratio (6-26) Glucose (70-105) mg/dL Calculated Osmolality (280-300) Lactic Acid (0.5-2.2) mmol/L Calcium (8.6-10.3) mg/dL Troponin I < 0.03 (< 0.04) ng/mL B-Natriuretic Peptide 33 (Less than 100) pg/mL Urine Color (Yellow) Urine Clarity (Clear) Urine pH (5.0-8.0) pH Units Ur Specific [place] (1.010-1.025) Urine Protein (Neg-Trace) mg/dL Urine Glucose (UA) (Normal) mg/dL Urine Ketones (Negative) mg/dL Urine Blood (Negative) Urine Nitrite (Negative) Urine Bilirubin (Negative) Urine Urobilinogen (Normal) mg/dL Ur Leukocyte Esterase (Negative) Ur Culture Indicated? (NO) Infectious Mitchell Assay Negative (Negative) 06/12/17 Range/Units 08:10 WBC (4.3-11.1) K/mcL RBC (3.82-4.97) M/mcL Hgb (11.5-15.4) g/dL Hct (35.3-44.9) % MCV (83.0-100.0) fL MCH (28.0-33.3) pg MCHC (31.6-35.5) g/dL RDW (11.5-14.5) % Plt Count (140-400) K/mcL MPV (9.4-12.4) fL Immature Gran % (0-4) % Seg Neutrophils % % Lymphocytes % % Monocytes % % Eosinophils % % Basophils % % Neutrophils # (1.6-8.9) K/mcL Lymphocytes # (0.6-4.6) K/mcL Monocytes # (0.0-1.3) K/mcL Eosinophils # (0.0-0.6) K/mcL Basophils # (0.0-0.2) K/mcL Sodium (136-145) mEq/L Potassium (3.5-5.1) mEq/L Chloride (98-107) mEq/L Carbon Dioxide (23-29) mEq/L BUN (6-20) mg/dL Creatinine (0.60-1.20) mg/dL Est GFR ( Amer) (> 60) Est GFR (Non-Af Amer) (> 60) BUN/Creatinine Ratio (6-26) Glucose (70-105) mg/dL Calculated Osmolality (280-300) Lactic Acid (0.5-2.2) mmol/L Calcium (8.6-10.3) mg/dL Troponin I (< 0.04) ng/mL B-Natriuretic Peptide (Less than 100) pg/mL Urine Color Yellow (Yellow) Urine Clarity Clear (Clear) Urine pH 6.5 (5.0-8.0) pH Units Ur Specific [place] 1.021 (1.010-1.025) Urine Protein Negative (Neg-Trace) mg/dL Urine Glucose (UA) Normal (Normal) mg/dL Urine Ketones Negative (Negative) mg/dL Urine Blood Negative (Negative) Urine Nitrite Negative (Negative) Urine Bilirubin Negative (Negative) Urine Urobilinogen Normal (Normal) mg/dL Ur Leukocyte Esterase Negative (Negative) Ur Culture Indicated? NO (NO) Infectious Mitchell Assay (Negative) - Radiology Data Radiology results reviewed: Yes I reviewed the patient's radiology results. Chest CTA 06/12/17 07:12 IMPRESSION: No evidence for pulmonary embolism. Emphysematous changes seen within the left and right lung apices. D/ / 06/12/2017 08:16:43 Vijay Hartman MD / bashir Interpreting Provider: Vijay Hartman MD - EKG Data EKG attestation: Yes I reviewed and interpreted this EKG. EKG results narrative: EKG performed 711, reported by myself without cardiology, normal sinus rhythm 91 bpm, normal axis, good R wave progression, no ST elevations or depression, no T wave inversion, intervals are within normal limits. Compared to old EKG performed 05/30/2017 shows sinus rhythm with T wave inversion in precordial lateral leads V4-V6. At this time no acute ischemic changes. Attestation Statement - Attestation Attestation: I, Carlos Cordero DO, examined this patient [id number] and my medical decision-making was reviewed with Trevon Burks DO , Resident Physician. I agree with the documented findings, disposition and treatment plan as described except to the extent set forth below. Please see my progress notes for details. 51-year-old female presents to emergency room For evaluation of shortness of breath. Patient has known history of COPD as well as hepatitis C. She presents here today with approximately 1 month of persistent cough and congestion. She is completed to prolonged courses of antibiotics along with utilizing home nebulizer treatments. She presents here today for evaluation of persistent cough generalized malaise and muscle aches. On physical exam patient is resting in the bed vital signs reviewed and are otherwise stable. Her pulse ox is 97% on room air. She has no respiratory distress or difficulty breathing. Head is atraumatic oropharynx is patent she has no signs and nostril are all congestion she is midline. Her trach is midline no swelling irritation no meningeal symptoms. No pain on movement of the neck. Lungs are clear heart is regular abdomen is soft nontender nondistended with no guarding no rigidity no peritoneal symptoms. She has no CVA tenderness noticed time. Denies any history of urinary tract infection or other symptoms. Patient is concerning for possible failed outpatient treatment of COPD versus bronchitis and pneumonia. Because of the 2 previous negative chest x-rays as well as the persistence of her symptoms we will address potential other pathology. CT angiography of the chest along with nasal and Monospot CBC chemistry EKG urinalysis and screening laboratory workup will be completed with troponin. Disposition be determined once workup is completed. Concern is noted for other underlying etiology secondary to immunosuppression failed treatment course. See detailed documentation of the physical exam, medical intervention, medical decision-making and disposition of the resident physician's note [id number] Patient has had moderate resolution of her shortness of breath and discomfort here in the emergency room and breathing treatments. Clinical evaluation included a CT angiography of the chest does not show any acute interstitial changes or pneumonia. No signs of pulmonary emboli. Symptoms are most consistent with outpatient treatment of bronchitis, generalized malaise from potential viral illness as well as progressive COPD. Steroids breathing treatments and antibiotic regimen started. Precautionary only covering against failed outpatient treatment of pneumonia. Ankle myosin Zosyn given here. The escalation of medications were restarted in the hospital setting. See detailed documentation of those conversations and hospitalist admission.
[2017-06-12 07:20] LABS: Basophils # 0.1 K/mcL (0.0-0.2); Basophils % 0.2 %; Eosinophils # 0.2 K/mcL (0.0-0.6); Eosinophils % 0.8 %; Hemoglobin 14.6 g/dL (11.5-15.4); Immature Granulocytes % 0.7 % (0-4); Lymphocytes # 3.5 K/mcL (0.6-4.6); Lymphocytes % 14.4 %; Mean Corpuscular Hemoglobin 32.7 pg (28.0-33.3); Mean Corpuscular Volume 96.4 fL (83.0-100.0); Mean Platelet Volume 9.1 fL (9.4-12.4); Monocytes % 8.1 %; Neutrophils # 18.3 K/mcL (1.6-8.9); Platelet Count 422 K/mcL (140-400); Red Blood Count 4.46 M/mcL (3.82-4.97); Red Cell Distribution Width 13.3 % (11.5-14.5); Segmented Neutrophils % 75.8 %
[2017-06-12 07:29] LABS: BUN/Creatinine Ratio 29 (6-26); Blood Urea Nitrogen 19 mg/dL (6-20); Calcium 8.8 mg/dL (8.6-10.3); Carbon Dioxide 28 mEq/L (23-29); Chloride 108 mEq/L (98-107); Glucose 108 mg/dL (70-105); Osmolality,Calculated 289 (280-300); Potassium 3.8 mEq/L (3.5-5.1); Sodium 138 mEq/L (136-145); eGFR For African Americans > 60 (> 60); eGFR For Non-African Americans > 60 (> 60)
[2017-06-12 08:24] LABS: Bilirubin,Urine Negative (Negative); Blood,Urine Negative (Negative); Clarity,Urine Clear (Clear); Color,Urine Yellow (Yellow); Glucose,Urine (UA) Normal (Normal); Ketones,Urine Negative (Negative); Leukocyte Esterase,Urine Negative (Negative); Nitrite,Urine Negative (Negative); PH,Urine 6.5 pH Units (5.0-8.0); Protein,Urine Negative (Neg-Trace); Specific Gravity,Urine 1.021 (1.010-1.025); Urobilinogen,Urine Normal (Normal)
[2017-06-12] MEDS ORDERED: Piperacillin/Tazobactam 3.375 GM in Water for inj. (sterile) 20 ML IVP ONE (08:58)
[2017-06-12] MEDS ORDERED: Vancomycin 1,000 MG in D5% in Water 250 ML IVPB ONE (08:58)
[2017-06-12 10:35] VITALS: BP 107/67
--- NOTE | 2017-06-12 11:41 | Internal Med History&Physical ---
Date of Encounter: 06/12/17 Time of Encounter: 11:41 Assessment and Plan (1) COPD with exacerbation Status: Acute ASSESSMENT: -ASSESSMENT: - SOB due to *COPD exacerbation caused by URTI, allergen exposure, medication nonocompliance *Bronchitis *Pneumonia - no infiltrate on CXR PLAN: - Aerosols q 4 hr and PRN SOB - Solu-medrol 40 mg IV q 6 hr - O2 to keep SpO2 higher than 92% (SpO higher than 95% if CAD) - CBCD, BMP in AM - Sputum Gram stain, C+S - Tylenol 650 mg PO q 4-6 hr PRN pain/fever - Heparin 5000 U SQ BID - Home meds - check the list and restart - Azithromycine 500 po daily (2) DVT prophylaxis Status: Acute Heparin 5000 BID Internal Medicine - H&P: HPI Chief complaint: sob Admitted From: Home History of present illness: 51-year-old female history of COPD pack per day smoker and hepatitis presents to the ED via EMS for dyspnea on exertion. as well as Fever last night as high as 101 . Patients had worsening shortness of breath and cough over the past month. Recently evaluated here in emergency department diagnosed with pneumonia. Patient reports given a course of Levaquin antibiotic with no improvement. She was admitted for further evaluation of COPD exacerbation. Past Med Surg Social Fam HX - Past Medical History Medical history: arthritis, COPD, hepatitis, kidney stones, other Psychiatric history: bipolar, panic disorder - Past Surgical History Surgical History: appendectomy, cholecystectomy, orthopedic, other, ANDRESSA/BSO, other - Social History Smoking Status: Current every day smoker Smokeless Tobacco Status: No Alcohol use: none Drug use: none - Family History Mother Living Status: Hx Family Cardiac Disorders: Yes Hx Family Cancer: Yes Hx Family Endocrine Disorder: Yes Father Living Status: Still Living Hx Family Cardiac Disorders: No Hx Family Respiratory Disorders: No Hx Family Cancer: No Hx Family GI Disorders: No Hx Family Endocrine Disorder: No Hx Family Neuromuscular Disorders: No Hx Family Neurologic Disorders: No Hx Family HEENT Disorders: No Hx Family Autoimmune Disorders: No Internal Medicine - H&P: Meds Benzonatate [Tessalon] 200 mg PO TID PRN 06/12/17 [History] Docusate Sodium [Dok] 100 mg PO BID 06/12/17 [History] Eszopiclone [Lunesta] 3 mg PO HS 06/12/17 [History] Ibuprofen [Motrin] 600 mg PO Q8HR PRN 06/12/17 [History] Lubiprostone [Amitiza] 24 mcg PO BID 06/12/17 [History] Tizanidine HCl 4 mg PO TID 06/12/17 [History] diazePAM [Valium] 10 mg PO TID 06/12/17 [History] levoFLOXacin [Levaquin] 500 mg PO DAILY 06/12/17 [History] 3 Allergy/AdvReac Type Severity Reaction Status Date / Time divalproex sodium Allergy Rash Verified 06/12/17 07:05 [From Depakote] sulfamethoxazole Allergy Anaphylaxis Verified 06/12/17 07:05 [From Bactrim] trimethoprim [From Bactrim] Allergy Anaphylaxis Verified 06/12/17 07:05 gabapentin AdvReac See Verified 06/12/17 07:05 Comments phenazopyridine AdvReac Vomiting Verified 06/12/17 07:05 [From Pyridium] All Systems PM: A 10-system review of systems was performed and is negative for pertinent findings except as documented above in the HPI. - Constitutional Constitutional: no chills, no fever(s), no night sweats - Cardiovascular Cardiovascular ROS IM: dyspnea, no chest pain, no diaphoresis, no lightheadedness, no palpitations, no syncope - Respiratory Respiratory: cough, dyspnea, dyspnea on exertion, wheezing, no excessive phlegm production - Gastrointestinal Gastrointestinal: no abdominal pain, no diarrhea, no hematemesis, no hematochezia, no melena, no nausea, no vomiting - Neurological Neurological ROS: no confusion, no convulsions, no focal weakness, no numbness, no tingling, no tremor(s) - Constitutional Vitals: Temp Pulse Resp BP Pulse Ox 96.7 F L 56 15 107/67 97 06/12/17 10:34 06/12/17 10:34 06/12/17 10:34 06/12/17 10:34 06/12/17 10:34 General appearance: Present: A&O X 3 - Head Head exam: Present: atraumatic, normocephalic - Eye Eye exam: Present: PERRL, conjuntiva pink, sclera anicteric Pupils: Present: PERRL - Neck Neck exam general surgery: Present: supple, trachea midline. Absent: lymphadenopathy - Respiratory Respiratory exam: Present: rhonchi, wheezes. Absent: accessory muscle use, rales - Cardiovascular Cardiovascular exam: Present: RRR, +S1, +S2. Absent: diastolic murmur, gallop, rubs, systolic murmur - GI/Abdominal GI/Abdominal exam: Present: normal bowel sounds, soft, no peritoneal signs. Absent: distended, tenderness - Extremities Exam Extremities exam: Present: warm, radial pulses palpable and symmetrical. Absent : calf tenderness, cyanotic, pedal edema Internal Med - H&P Results - Labs CBC & Chem 7: 06/12/17 07:07 06/12/17 07:07
[2017-06-12] MEDS ORDERED: Ondansetron ODT 4 MG TAB.RAPDIS SL PRN (13:42)
[2017-06-12] MEDS ORDERED: Naloxone 0.4 MG/ML INJ IVP PRN (13:42)
[2017-06-12] MEDS ORDERED: *HR* Morphine 2 MG/ML SYRINGE IVP PRN (13:42)
[2017-06-12] MEDS ORDERED: Acetaminophen 325 MG TABLET PO PRN (13:42)
--- NOTE | 2017-06-12 16:55 | Electrocardiograph Report ---
[address] [address] Test Date: 2017-06-12 Pat Name: Marielena Crook Department: 104 Room: 3B16 Gender: F Cna Per Diem: CROW : 1965 Requested By: Trevon Burks Order Number: [id number] Reading MD: Ceferino Zamora MD Measurements Intervals [place] Rate: 91 P: 61 MI: 136 QRS: 29 QRSD: 88 T: 44 QT: 348 QTc: 397 Interpretive Statements SINUS RHYTHM Electronically Signed On 06-12-2017 16:53:46 EST by Ceferino Zamora MD
[2017-06-13] MEDS ORDERED: Aspirin 81 MG TAB.CHEW PO SCH (09:00)
== END 2017-06-12 14:00 | disposition left against medical advice (07) | DRG 140 ==
LOC: 3BNU 07:04 → EMEROO 07:04 → 3BNU 10:11 → UNDODISOB 14:00
PROVIDERS: ADMIT Internal Medicine Nephrology; ATTEND Registered Nurse